=== PATIENT | male | born 1945 | race Caucasian/White ===

== ENCOUNTER 2018-02-06 10:04 | Emergency (ER) | payer OTHER ==
[~2018-02-06] VITALS: Ht 180.3 cm; Wt 89.4 kg
== END 2018-02-06 19:32 | disposition home or self-care (01) ==
LOC: ER 10:04 → CPU-OBS 11:01 → ER 19:32
DX: K21.9 Gastro-esophageal reflux disease without esophagitis (principal); R07.89 Other chest pain